=== PATIENT | male | born 1970 | race Caucasian/White ===

== ENCOUNTER 2022-03-29 17:18 | Emergency (ER) | payer SELFPAY ==
[2022-03-29] MEDS ORDERED: Mag-Al Plus 1200 MG/1200 MG/120 MG/30 ML UDCUP ONE (17:44)
[2022-03-29] MEDS ORDERED: Lidocaine Viscous Sol 2% 15 ml UD Cup ONE (17:44)
== END 2022-03-29 18:27 | disposition home or self-care (01) ==
LOC: MADERS 17:18
DX: K21.9 Gastro-esophageal reflux disease without esophagitis (principal)
CPT/HCPCS: 71045; 93005